=== PATIENT | female | born 1960 ===

== ENCOUNTER 2020-08-17 08:20 | Inpatient (IN) ==
[~2020-08-17 08:20] MED LIST: Buffered Lidocaine 1% SYRIN 1 ml INTRADERM ONE; DiMENhydriNATE IV 50 mg/ml 1 ml VIAL IV PUSH ONE; Famotidine IV 10 MG/ML 2 ml VIAL (20 mg) IV ONE; HYDROmorphone 1 MG/1 ML SYRINGE IV PRN; Lactated Ringers 1000 ml BAG 1,000 ML IV SCH; Metoclopramide 5 MG/ML VIAL (10 mg) IV PRN; Naloxone 0.4 mg VIAL 0.4 mg/ml 1 ml VIAL IV PRN; Ondansetron 4 mg VIAL 2 MG/ML 2 ml VIAL IV PRN; fentaNYL 100 mcg/2 ml 50 MCG/ML VIAL IV PRN
[2020-08-17] MEDS ORDERED: Famotidine IV 10 MG/ML 2 ml VIAL (20 mg) ONE (08:36)
[2020-08-17] MEDS ORDERED: Lidocaine 1% w EPI 1:100,000 MDV 20 ML VIAL ONE (10:58)
[2020-08-17] MEDS ORDERED: Bacitracin OINTMENT TUBE ONE (10:59)
[2020-08-17] MEDS ORDERED: Propofol 10 MG/ML 20 ML BTL ONE (11:01)
[2020-08-17] MEDS ORDERED: Midazolam 2 mg/2 ml VIAL 1 mg/ml 2 ml VIAL (2 mg) ONE (11:01)
[2020-08-17] MEDS ORDERED: Lidocaine 2% PF 5 ML VIAL ONE (11:01)
[2020-08-17] MEDS ORDERED: fentaNYL 100 mcg/2 ml 50 MCG/ML VIAL ONE ×4 (11:02→15:16)
[2020-08-17] MEDS ORDERED: Rocuronium 50 mg VIAL 10 mg/ml 5 ml VIAL (50 mg) ONE (11:56)
[2020-08-17 12:01] LABS: ABS Lymphocytes 0.9 10^3/ul (1.0-4.8); ABS Monocytes 0.4 10^3/ul (0-0.8); ABS Neutrophils 2.4 10^3/ul (1.5-7.7); Eosinophil % 0.8 %; Hematocrit 39 % (35-47); Hemoglobin 13.7 g/dL (12.0-16.0); Lymphocyte % 23.1 %; Mean Corpuscular HGB Conc 36 g/dL (31-36); Mean Corpuscular Hemoglobin 35 pg (27-31); Mean Corpuscular Volume 99 fL (80-97); Mean Platelet Volume 9.1 fL (7.4-10.4); Nucleated Red Blood Cells % 0.2; Platelet Count 58 10^3/uL (150-450); Red Blood Count 3.91 10^6 /uL (3.70-4.87); Red Cell Distribution Width 13 % (10-15); White Blood Count 3.7 10^3/uL (3.5-10.8)
[2020-08-17] MEDS ORDERED: Dexamethasone IV 4 MG/ML VIAL 1 ml VIAL ONE (12:40)
[2020-08-17] MEDS ORDERED: diPHENhydraMINE IV 50 MG/ML 1 ml VIAL (BENADRYL) ONE (12:41)
[2020-08-17] MEDS ORDERED: Ondansetron 4 mg VIAL 2 MG/ML 2 ml VIAL ONE (13:21)
[2020-08-17] MEDS ORDERED: DiMENhydriNATE IV 50 mg/ml 1 ml VIAL IV PUSH PRN (13:40)
[2020-08-17] MEDS ORDERED: Levalbuterol 0.63MG/3ML NEB UNIT OF USE INH PRN (13:40)
[2020-08-17] MEDS ORDERED: diPHENhydraMINE IV 50 MG/ML 1 ml VIAL (BENADRYL) IV PRN (13:40)
[2020-08-17] MEDS ORDERED: Artificial Tear OPHTH.OINT 3.5 GM ONE (13:44)
[2020-08-17] MEDS ORDERED: Phenylephrine 40 mcg/mL 10mL (400mcg) SYRINGE ONE (13:49)
[2020-08-17] MEDS: fentaNYL 100 mcg/2 ml 50 MCG/ML VIAL IV PRN ×4 (14:46→15:28)
[2020-08-17] MEDS ORDERED: hydrALAZINE 20 mg/ml 1 ML Vial IV ONE (15:16)
[2020-08-17] MEDS ORDERED: hydrALAZINE 20 mg/ml 1 ML Vial IV IV SLOW PU ONE (15:22)
[2020-08-17] MEDS ORDERED: Thiamine 100 MG/ML 2 ml VIAL (200 mg) IM ONE (16:34)
[2020-08-17] MEDS ORDERED: LORazepam 2 mg VIAL 1 ml IV PUSH SCH (17:00)
[2020-08-17] MEDS ORDERED: Acetaminophen IV 1 GM/100ML 0 ML IVPB SCH (17:00)
[2020-08-17 17:10] LABS: Mean Platelet Volume 9.1 fL (7.4-10.4); Platelet Count 57 10^3/uL (150-450)
[2020-08-17] MEDS: Acetaminophen IV 1 GM/100ML 100 ML IV SCH (18:16)
[2020-08-17] MEDS: Multivitamins/Minerals TAB PO SCH (18:20)
[2020-08-17] MEDS: Dexamethasone IV 4 MG/ML VIAL 1 ml VIAL IV SLOW PU SCH (18:27)
[2020-08-18] MEDS: Acetaminophen IV 1 GM/100ML 100 ML IV SCH ×2 (00:07→05:16)
[2020-08-18] MEDS: Dexamethasone IV 4 MG/ML VIAL 1 ml VIAL IV SLOW PU SCH ×5 (00:07→23:50)
[2020-08-18 05:03] LABS: ABS Lymphocytes 0.5 10^3/ul (1.0-4.8); ABS Monocytes 0.1 10^3/ul (0-0.8); ABS Neutrophils 3.8 10^3/ul (1.5-7.7); Hematocrit 36 % (35-47); Lymphocyte % 10.8 %; Mean Corpuscular HGB Conc 36 g/dL (31-36); Mean Corpuscular Hemoglobin 35 pg (27-31); Mean Corpuscular Volume 98 fL (80-97); Platelet Count 59 10^3/uL (150-450); Red Cell Distribution Width 14 % (10-15); White Blood Count 4.4 10^3/uL (3.5-10.8)
[2020-08-18 05:14] LABS: Calcium 8.8 mg/dL (8.6-10.3); EGFR African American 106.8 (>60); EGFR Non-African American 88.3 (>60); Potassium 3.8 mmol/L (3.5-5.0)
[2020-08-18] MEDS: Multivitamins/Minerals TAB PO SCH (10:59)
[2020-08-18] MEDS ORDERED: Dexamethasone IV 4 MG/ML VIAL 1 ml VIAL ONE (16:54)
[2020-08-19] MEDS: Dexamethasone IV 4 MG/ML VIAL 1 ml VIAL IV SLOW PU SCH (05:21)
[2020-08-19] MEDS: Multivitamins/Minerals TAB PO SCH (08:36)
[2020-08-19 11:23] VITALS: BP 169/74
== END 2020-08-19 17:00 | disposition home or self-care (01) | DRG 98 ==
LOC: SSU 08:20 → OR 08:20 → OBSVTOIN 15:14
PROVIDERS: ADMIT Internal Medicine; ATTEND Internal Medicine

== ENCOUNTER 2020-12-27 10:49 | Inpatient (IN) ==
[2020-12-27] MEDS ORDERED: Nicotine Lozenge mini 4 MG LOZNG.MINI MT PRN (12:33)
[2020-12-27] MEDS ORDERED: Dextrose 50% Syringe 50 ml 25 GM/50 ML SYRINGE IV PUSH PRN (12:39)
[2020-12-27] MEDS ORDERED: cefTRIAXone 1 gm/50 mL NS BAG 1 GM/50 ML BAG IVPB SCH (12:42)
[2020-12-27 13:52] LABS: Albumin 2.7 g/dL (3.2-5.2); C Reactive Protein 80.17 mg/L (<8.01); Calcium 7.9 mg/dL (8.6-10.3); Globulin 2.7 g/dL (2-4); Potassium 3.6 mmol/L (3.5-5.0); Total Bilirubin 1.3 mg/dL (0.2-1.0); Total Protein 5.4 g/dL (6.4-8.9)
[2020-12-27 13:53] LABS: Hematocrit 30 % (35-47); Hemoglobin 10.4 g/dL (12.0-16.0); Mean Corpuscular HGB Conc 35 g/dL (31-36); Mean Corpuscular Hemoglobin 35 pg (27-31); Mean Corpuscular Volume 98 fL (80-97); Mean Platelet Volume 9.4 fL (7.4-10.4); Platelet Count 26 10^3/uL (150-450); Red Blood Count 2.99 10^6 /uL (3.70-4.87); Red Cell Distribution Width 15 % (10-15); White Blood Count 2.1 10^3/uL (3.5-10.8)
[2020-12-27 14:24] LABS: INR 1.21 (0.86-1.15)
[2020-12-27 14:50] LABS: ABS Lymphocytes 0.6 10^3/ul (1.0-4.8); ABS Monocytes 0.4 10^3/ul (0-0.8); Eosinophil % 2.3 %; Lymphocyte % 29.3 %
[2020-12-27] MEDS ORDERED: Heparin 5000 UNITS/ML 1 mL VIAL IV SCH (15:00)
[2020-12-27 16:00] LABS: ABS Eosinophils 0.1 10^3/ul (0-0.6); ABS Lymphocytes 0.6 10^3/ul (1.0-4.8); ABS Monocytes 0.4 10^3/ul (0-0.8); Eosinophil % 3.1 %; Hematocrit 30 % (35-47); Hemoglobin 10.3 g/dL (12.0-16.0); Mean Corpuscular HGB Conc 34 g/dL (31-36); Mean Corpuscular Hemoglobin 34 pg (27-31); Mean Corpuscular Volume 98 fL (80-97); Mean Platelet Volume 10.2 fL (7.4-10.4); Nucleated Red Blood Cells % 0.2; Platelet Count 30 10^3/uL (150-450); Red Blood Count 3.05 10^6 /uL (3.70-4.87); Red Cell Distribution Width 16 % (10-15); White Blood Count 2.1 10^3/uL (3.5-10.8)
[2020-12-27] MEDS: Heparin DRIP 25,000 UNITS BAG 25,000 UNITS/500 ML BAG IV SCH (16:09)
[2020-12-27] MEDS ORDERED: Furosemide 40 mg/4 ml IV VIAL IV SLOW PU ONE (22:15)
[2020-12-28 06:59] LABS: ABS Eosinophils 0.1 10^3/ul (0-0.6); ABS Lymphocytes 0.6 10^3/ul (1.0-4.8); ABS Monocytes 0.4 10^3/ul (0-0.8); ABS Neutrophils 1.5 10^3/ul (1.5-7.7); Eosinophil % 2.5 %; Hematocrit 29 % (35-47); Hemoglobin 9.9 g/dL (12.0-16.0); Lymphocyte % 23.7 %; Mean Corpuscular HGB Conc 35 g/dL (31-36); Mean Corpuscular Hemoglobin 34 pg (27-31); Mean Corpuscular Volume 99 fL (80-97); Mean Platelet Volume 9.9 fL (7.4-10.4); Nucleated Red Blood Cells % 0.1; Platelet Count 30 10^3/uL (150-450); Red Cell Distribution Width 15 % (10-15); White Blood Count 2.6 10^3/uL (3.5-10.8)
[2020-12-28 07:05] LABS: Calcium 7.8 mg/dL (8.6-10.3); Potassium 3.2 mmol/L (3.5-5.0)
[2020-12-28] MEDS ORDERED: Potassium Chloride IV 40 MEQ in Lactated Ringers 1000 ml BAG 1,000 ML IVPB SCH (08:00)
[2020-12-28] MEDS: Venlafaxine XR 75 mg PO SCH (09:26)
[2020-12-28] MEDS: Nicotine PATCH 21 MG/24 HR PATCH TRANSDERM SCH (09:27)
[2020-12-28] MEDS: Lactulose 30 ml UDC PO SCH (09:27)
[2020-12-28] MEDS ORDERED: Potassium Chlor 20 meq TAB.ER PO ONE (10:53)
[2020-12-28] MEDS ORDERED: Magnesium Sulfate IV 1GM/100ML 1 GM/100 ML BAG IV ONE (10:53)
[2020-12-28 11:39] LABS: Magnesium 1.6 mg/dL (1.9-2.7)
[2020-12-28] MEDS: Furosemide 20 mg/2 ml IV VIAL IV SLOW PU SCH ×2 (11:45→19:51)
[2020-12-28] MEDS: cefTRIAXone 2 GM ADDV.VIAL 2 GM in NS 0.9% 100 ml BAG 100 ML IV SCH (11:49)
[2020-12-28] MEDS ORDERED: Magnesium Sulfate IV 3 GM in NS 0.9% 100 ml BAG 100 ML IVPB ONE (12:42)
[2020-12-28 14:45] LABS: Hepatitis B Surface Antigen Nonreactive (Nonreactive)
[2020-12-28 14:50] LABS: Hepatitis A Ab IgM Negative (Negative)
[2020-12-28 14:51] LABS: Hepatitis B Core IgM Nonreactive (Nonreactive)
[2020-12-28 15:06] LABS: Hepatitis C Antibody Reactive (Negative)
[2020-12-28] MEDS: Heparin DRIP 25,000 UNITS BAG 25,000 UNITS/500 ML BAG IV SCH (18:58)
[2020-12-28] MEDS ORDERED: Gadoteridol (CONTRAST) 279.3 MG/ML 10 ML IV ONE (20:15)
[2020-12-29 06:27] LABS: ABS Eosinophils 0.1 10^3/ul (0-0.6); ABS Lymphocytes 0.9 10^3/ul (1.0-4.8); ABS Monocytes 0.4 10^3/ul (0-0.8); ABS Neutrophils 1.7 10^3/ul (1.5-7.7); Eosinophil % 1.8 %; Hematocrit 30 % (35-47); Hemoglobin 10.4 g/dL (12.0-16.0); Lymphocyte % 29.2 %; Mean Corpuscular HGB Conc 35 g/dL (31-36); Mean Corpuscular Hemoglobin 34 pg (27-31); Mean Corpuscular Volume 98 fL (80-97); Nucleated Red Blood Cells % 0.1; Platelet Count 49 10^3/uL (150-450); Red Blood Count 3.07 10^6 /uL (3.70-4.87); Red Cell Distribution Width 16 % (10-15)
[2020-12-29 06:44] LABS: INR 1.38 (0.86-1.15)
[2020-12-29 06:46] LABS: Albumin 2.6 g/dL (3.2-5.2); Albumin/Globulin Ratio 0.9 (1-3); Calcium 7.7 mg/dL (8.6-10.3); Direct Bilirubin 0.3 mg/dL (0.03-0.18); Globulin 2.9 g/dL (2-4); Indirect Bilirubin 0.6 mg/dL (0.3-1.0); Phosphorus 2.5 mg/dL (2.5-5.0); Potassium 2.9 mmol/L (3.5-5.0); Total Bilirubin 0.9 mg/dL (0.2-1.0); Total Protein 5.5 g/dL (6.4-8.9)
[2020-12-29] MEDS: Nicotine PATCH 21 MG/24 HR PATCH TRANSDERM SCH (08:31)
[2020-12-29] MEDS: Venlafaxine XR 75 mg PO SCH (08:31)
[2020-12-29] MEDS: Furosemide 20 mg/2 ml IV VIAL IV SLOW PU SCH (08:31)
[2020-12-29] MEDS: Lactulose 30 ml UDC PO SCH (08:31)
[2020-12-29] MEDS: cefTRIAXone 2 GM ADDV.VIAL 2 GM in NS 0.9% 100 ml BAG 100 ML IV SCH (08:32)
[2020-12-29] MEDS ORDERED: Potassium Chlor 20 meq TAB.ER PO ONE ×2 (11:24→16:00)
[2020-12-29] MEDS: Heparin DRIP 25,000 UNITS BAG 25,000 UNITS/500 ML BAG IV SCH (12:44)
[2020-12-30 07:28] LABS: ABS Lymphocytes 0.7 10^3/ul (1.0-4.8); ABS Monocytes 0.2 10^3/ul (0-0.8); ABS Neutrophils 2.5 10^3/ul (1.5-7.7); Hematocrit 29 % (35-47); Hemoglobin 10.1 g/dL (12.0-16.0); Lymphocyte % 20.3 %; Mean Corpuscular HGB Conc 35 g/dL (31-36); Mean Corpuscular Hemoglobin 34 pg (27-31); Mean Corpuscular Volume 99 fL (80-97); Nucleated Red Blood Cells % 0.1; Platelet Count 67 10^3/uL (150-450); Red Blood Count 2.93 10^6 /uL (3.70-4.87); Red Cell Distribution Width 16 % (10-15); White Blood Count 3.5 10^3/uL (3.5-10.8)
[2020-12-30 07:39] LABS: Calcium 7.6 mg/dL (8.6-10.3); Magnesium 1.9 mg/dL (1.9-2.7); Phosphorus 2.6 mg/dL (2.5-5.0); Potassium 3.2 mmol/L (3.5-5.0)
[2020-12-30] MEDS ORDERED: Potassium Chlor 20 meq TAB.ER PO ONE ×2 (08:49→14:00)
[2020-12-30] MEDS ORDERED: Magnesium Sulfate IV 1GM/100ML 1 GM/100 ML BAG IV ONE (08:50)
[2020-12-30] MEDS: Nicotine PATCH 21 MG/24 HR PATCH TRANSDERM SCH (09:42)
[2020-12-30] MEDS: Venlafaxine XR 75 mg PO SCH (09:43)
[2020-12-30] MEDS: Lactulose 30 ml UDC PO SCH (09:51)
[2020-12-30] MEDS ORDERED: Potassium Chloride IV 40 MEQ in Lactated Ringers 1000 ml BAG 1,000 ML IVPB ONE (10:30)
[2020-12-30] MEDS: cefTRIAXone 2 GM ADDV.VIAL 2 GM in NS 0.9% 100 ml BAG 100 ML IV SCH (11:31)
[2020-12-31 06:48] LABS: Calcium 7.7 mg/dL (8.6-10.3); Potassium 3.8 mmol/L (3.5-5.0)
[2020-12-31 07:11] LABS: ABS Lymphocytes 0.7 10^3/ul (1.0-4.8); ABS Monocytes 0.2 10^3/ul (0-0.8); ABS Neutrophils 2.2 10^3/ul (1.5-7.7); Eosinophil % 0.7 %; Hematocrit 29 % (35-47); Hemoglobin 10.2 g/dL (12.0-16.0); Lymphocyte % 22.8 %; Mean Corpuscular HGB Conc 35 g/dL (31-36); Mean Corpuscular Hemoglobin 34 pg (27-31); Mean Corpuscular Volume 99 fL (80-97); Mean Platelet Volume 9.6 fL (7.4-10.4); Nucleated Red Blood Cells % 0.1; Platelet Count 68 10^3/uL (150-450); Red Blood Count 2.96 10^6 /uL (3.70-4.87); Red Cell Distribution Width 16 % (10-15); White Blood Count 3.2 10^3/uL (3.5-10.8)
[2020-12-31] MEDS ORDERED: Potassium Chlor 20 meq TAB.ER PO ONE (07:21)
[2020-12-31] MEDS: Venlafaxine XR 75 mg PO SCH (09:54)
[2020-12-31] MEDS: Nicotine PATCH 21 MG/24 HR PATCH TRANSDERM SCH (09:55)
[2020-12-31] MEDS: Lactulose 30 ml UDC PO SCH (09:56)
[2020-12-31] MEDS: cefTRIAXone 2 GM ADDV.VIAL 2 GM in NS 0.9% 100 ml BAG 100 ML IV SCH (10:02)
[2021-01-01 06:56] LABS: Hematocrit 29 % (35-47); Hemoglobin 10.2 g/dL (12.0-16.0); Mean Corpuscular HGB Conc 35 g/dL (31-36); Mean Corpuscular Hemoglobin 34 pg (27-31); Mean Corpuscular Volume 98 fL (80-97); Mean Platelet Volume 9.4 fL (7.4-10.4); Platelet Count 79 10^3/uL (150-450); Red Blood Count 2.98 10^6 /uL (3.70-4.87); Red Cell Distribution Width 16 % (10-15); White Blood Count 2.9 10^3/uL (3.5-10.8)
[2021-01-01 07:07] LABS: Potassium 3.9 mmol/L (3.5-5.0)
[2021-01-01] MEDS: Venlafaxine XR 75 mg PO SCH (09:11)
[2021-01-01] MEDS: Nicotine PATCH 21 MG/24 HR PATCH TRANSDERM SCH (09:12)
[2021-01-01] MEDS: Lactulose 30 ml UDC PO SCH (09:12)
[2021-01-01 11:49] VITALS: BP 139/55
== END 2021-01-01 13:37 | disposition home or self-care (01) | DRG 134 ==
LOC: SUATTDRO 12:20 → MEDTELE 12:20
PROVIDERS: ADMIT Internal Medicine; ATTEND Internal Medicine